=== PATIENT | male | born 1980 | race Caucasian/White ===

== ENCOUNTER 2019-12-21 17:31 | Emergency (ER) | payer MEDICAID, OTHER ==
[~2019-12-21] VITALS: Ht 180.3 cm; Wt 132.9 kg
[2019-12-21 17:35] VITALS: BP 143/78
[2019-12-21] MEDS ORDERED: ACETAMINOPHEN EXTRA STRENGTH 500 MG TAB PO ONE (18:20)
[2019-12-21 18:34] VITALS: BP 134/76
== END 2019-12-21 18:34 | disposition home or self-care (01) ==
LOC: MED 17:31
DX: S90.112A Contusion of left great toe without damage to nail, initial encounter (principal); W22.8XXA Striking against or struck by other objects, initial encounter; Y93.01 Activity, walking, marching and hiking; Y92.832 Beach as the place of occurrence of the external cause; Y99.8 Other external cause status
CPT/HCPCS: 73620; 99283; Q0092